=== PATIENT | female | born 1970 | race Caucasian/White ===

== ENCOUNTER 2019-11-27 07:55 | Outpatient (CLI) | payer OTHER, SELFPAY ==
[2019-11-27 08:07] VITALS: BMI 29.9
--- NOTE | 2019-11-27 08:21 | NMCV_ITS ---
Kevin Deandra Age: 49 Gender: F : 1970 Exam Date: 11/27/2019 08:50 Ordering Phys: Wilmer Maddox DO Technologist: LOUISE Pace Exam Location: [facility] Indications: Chest Pain STRESS TEST Please see separate stress test report in [facility] for full findings IMAGE PROTOCOL Rest/Stress 1 Lexiscan Day Radiopharmaceutical Dose (mCi) Administration Site Administered by Rest: Tc-99m 10.1 IV LOUISE Robison Sestamibi Stress:Tc-99m 27.9 IV LOUISE Pace Sestamibi Rest: 27-Nov-2019 60 Discovery 630 Stress: 27-Nov-2019 90 Discovery 630 0.4mg Lexiscan. Supine position only as patient began throwing up in the middle of the prone images. SPECT RESULTS Technical Quality: Good Raw Data Analysis: Normal, Breast attenuation Image Corrections: No attenuation or motion correction applied Summed Stress Score: 0 Summed Rest Score: 0 Summed Difference Score: 0 PERFUSION FINDINGS SPECT images demonstrate homogeneous tracer distribution throughout the myocardium. FUNCTIONAL RESULTS (calculated via Gated SPECT) Stress Image LV EF (%): 79 Stress EDV (mL):68 TID: 0.97 Stress ESV (mL):14 FUNCTIONAL FINDINGS: The left ventricle is normal in size. Transient Ischemia Dilatation of 0.97. There is normal left ventricular systolic function. The left ventricular ejection fraction is normal with a value of 79%. There is hyperdynamic left ventricular wall thickening. IMPRESSIONS 1. Myocardial perfusion imaging is normal. 2. Overall left ventricular systolic function is normal without regional wall motion abnormalities. 3. The left ventricular ejection fraction is normal with a value of 79%. 4. This study suggests a low likelihood of angiographically significant coronary artery disease. Trinidad Pelletier MD (Electronically Signed) Final Date: 27 November 2019 17:56 S
--- NOTE | 2019-11-27 08:21 | ECG_ITS ---
NAME OF STUDY: LEXISCAN SESTAMIBI STRESS TEST INDICATION: Chest Pain, Ischemic Heart Disease NOTE: Please note that this is the electrocardiogram portion of the Lexiscan/Sestamibi stress test. The perfusion scan will be documented separately. DATA: Baseline heart rate was 67 beats per minute. Baseline blood pressure was 145/82 millimeters of mercury. Target heart rate was 169. Maximum heart rate achieved was 106. which was 62 % of the predicted target heart rate. Maximum blood pressure was 145/83 millimeters of mercury. The reason for ending the test was completion of the protocol. The patient did not experience any symptoms. ELECTROCARDIOGRAM: BASELINE: Sinus rhythm. Normal axis. 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 No arrhythmia noted. EXERCISE: After Lexiscan injection, no ST-T changes suggestive of ischemic noted. No arrhythmia noted. CONCLUSION: Please note due to baseline abnormality of the EKG specificity and sensitivity of the EKG portion of LexiScan MIBI stress test will be low 1. EKG not suggestive of ischemia 2. Lexiscan injection unremarkable. 3. Perfusion scan will be documented separately. Electronically Signed On 11-27-2019 13:54:04 INSURANCE CLAIM AUDITOR by Yari Maciel M.D. [email or web address]
[2019-11-27] MEDS: regadenoson 0.4 Mg/5 ml Syringe IVP (09:50)
[2019-11-27 10:00] VITALS: BP 143/75; PULSE 73
== END 2019-11-27 07:56 | disposition home or self-care (01) ==
PROVIDERS: PCP Nurse Practitioner Family; Visit Provider Electrodiagnostic Medicine
DX: R07.9 Chest pain, unspecified (principal); Z82.49 Family history of ischemic heart disease and other diseases of the circulatory system
CPT/HCPCS: 78452; 93017; A9500; J2785

== ENCOUNTER 2020-08-29 13:51 | Outpatient (CLI) | payer OTHER, SELFPAY ==
--- NOTE | 2020-08-29 14:09 | XR_ITS ---
WS: [id number] Left shoulder, 08/29/2020 Clinical Data: SHOULDER PAIN, LEFT Comparison: None. Findings: No fractures or dislocations are seen. The AC joint is normal. The adjacent left clavicle, left scapu la and ribs are normal. The soft tissues are unremarkable. XR/XR shoulder LT min 2V* [id number] Impression: Negative left shoulder.
== END 2020-08-29 13:52 | disposition home or self-care (01) ==
LOC: RADWPI 13:54
PROVIDERS: PCP Nurse Practitioner Family; Visit Provider Nurse Practitioner Family
DX: M25.512 Pain in left shoulder (principal)
CPT/HCPCS: 73030

== ENCOUNTER 2020-09-22 16:20 | Outpatient (CLI) | payer OTHER, SELFPAY ==
--- NOTE | 2020-09-22 | MR_ITS ---
WS: [id number] MRI LEFT SHOULDER NONCONTRAST TECHNIQUE: Sagittal T2, coronal T1, T2 and proton density imaging. Axial gradient PDE imaging. CLINICAL INFORMATION: SHOULDER PAIN, LEFT COMPARISON: None. FINDINGS: Mild degenerative arthritis at the AC joint. Mild downsloping acromion. Slight subacromial spurring. Rotator cuff is intact. Normal supraspinatus and infraspinatus. Tiny subacromial effusion. Normal teres minor. Normal subscapularis. No rotator cuff tears. Normal biceps tendon in the bicipita l groove. Glenoid labrum is grossly normal. Intra-articular biceps tendon is normal in appearance. Sm all amount of fluid in the subcoracoid bursa. Normal bone marrow signal in the humerus. MR/MR shoulder LT wo con* [id number] IMPRESSION: 1. Mild degenerative arthritis at the AC joint with mild downsloping of the ac romion. Small amount of subacromial fluid. 2. Normal rotator cuff. No rotator cuff tears. 3. Normal biceps tendon in the bicipital groove. 4. Glenoid labrum appears grossly unremarkable.
== END 2020-09-22 16:21 | disposition home or self-care (01) ==
PROVIDERS: PCP Nurse Practitioner Family; Visit Provider Nurse Practitioner Family
DX: M19.012 Primary osteoarthritis, left shoulder (principal)
CPT/HCPCS: 73221

== ENCOUNTER → 2020-09-24 10:02 | Outpatient (BNVA) | payer OTHER, SELFPAY | PROVIDERS: PCP Nurse Practitioner Family; Visit Provider Specialist | DX: R20.0 Anesthesia of skin (principal); R20.2 Paresthesia of skin | CPT/HCPCS: 95908 ==

== ENCOUNTER 2020-11-11 16:15 | Outpatient (RCR) | payer OTHER, SELFPAY | END 2020-11-13 23:59 | disposition home or self-care (01) | LOC: SPT 16:15 | PROVIDERS: PCP Nurse Practitioner Family; Referring Provider Orthopaedic Surgery; Visit Provider Orthopaedic Surgery | DX: M75.02 Adhesive capsulitis of left shoulder (principal) | CPT/HCPCS: 97110; 97161 ==

== ENCOUNTER 2020-11-14 06:00 | Outpatient (RCR) | payer OTHER, SELFPAY | END 2020-12-14 23:59 | disposition home or self-care (01) | LOC: SPT 06:00 | PROVIDERS: PCP Nurse Practitioner Family; Referring Provider Orthopaedic Surgery; Visit Provider Orthopaedic Surgery | DX: M75.02 Adhesive capsulitis of left shoulder (principal) | CPT/HCPCS: 97110 ==

== ENCOUNTER → 2022-05-26 16:11 | Outpatient (BNVA) | payer OTHER, SELFPAY | PROVIDERS: PCP Nurse Practitioner Family; Visit Provider Nurse Practitioner Family | DX: E03.9 Hypothyroidism, unspecified (principal) | CPT/HCPCS: 84443 ==

== ENCOUNTER → 2022-08-12 14:08 | Outpatient (BNVA) | payer OTHER, SELFPAY | PROVIDERS: PCP Nurse Practitioner Family; Visit Provider Nurse Practitioner Family | DX: E03.9 Hypothyroidism, unspecified (principal) | CPT/HCPCS: 84443 ==

== ENCOUNTER → 2023-07-01 08:02 | Outpatient (BNVA) | payer OTHER, SELFPAY | PROVIDERS: PCP Clinical Nurse Specialist Adult Health; Visit Provider Clinical Nurse Specialist Adult Health | DX: E03.9 Hypothyroidism, unspecified (principal) | CPT/HCPCS: 84436; 84443; 84481 ==

== ENCOUNTER → 2023-08-23 08:58 | Outpatient (BNVA) | payer OTHER, SELFPAY | PROVIDERS: PCP Clinical Nurse Specialist Adult Health; Visit Provider Clinical Nurse Specialist Adult Health | DX: E03.9 Hypothyroidism, unspecified (principal) | CPT/HCPCS: 84436; 84443; 84481 ==

== ENCOUNTER → 2023-10-20 12:54 | Outpatient (BNVA) | payer OTHER, SELFPAY | PROVIDERS: PCP Clinical Nurse Specialist Adult Health; Visit Provider Clinical Nurse Specialist Adult Health | DX: M25.511 Pain in right shoulder (principal); G89.29 Other chronic pain | CPT/HCPCS: 85025; 85651; 86140; 86431 ==

== ENCOUNTER 2023-10-21 16:16 | Outpatient (CLI) | payer OTHER, SELFPAY ==
--- NOTE | 2023-10-21 16:32 | XRR_ITS ---
PROCEDURE INFORMATION: Exam: XR Right Shoulder Exam date and time: 10/21/2023 4:42 PM Age: 53 years old Clinical indication: Right; Patient HX: RT shoulder pain/stiffness with limited rom; PT states she has locked shoulder; Additional info: Right shoulder pain TECHNIQUE: Imaging protocol: Radiologic exam of the right shoulder. Views: 2 or more views. COMPARISON: CT angio chest PE protcl [id number] 11/09/2019 4:08 PM FINDINGS: Bones/joints: Normal. Soft tissues: Normal. XR/XR shoulder RT min 2V* [id number] IMPRESSION: No acute findings.
== END 2023-10-21 16:17 | disposition home or self-care (01) ==
LOC: RAD 16:18
PROVIDERS: PCP Clinical Nurse Specialist Adult Health; Visit Provider Clinical Nurse Specialist Adult Health
DX: M25.511 Pain in right shoulder (principal)
CPT/HCPCS: 73030

== ENCOUNTER 2023-11-24 15:31 | Outpatient (CLI) | payer OTHER, SELFPAY ==
--- NOTE | 2023-11-24 16:00 | MR_ITS ---
WS: [id number] MRI RIGHT SHOULDER HISTORY: right shoulder pain COMPARISON: Radiograph 10/21/2023 TECHNIQUE: Multiplanar sequences of the shoulder joint are submitted. Mild AC joint arthritis. Small osteophytes encroach upon the supraspinatus muscle and tendon. AC join t is narrowed and there is a small amount of fluid along the AC joint. There is a very small amount o f fluid in the subacromial bursa. No significant subacromial impingement. No os acromion. Normal posi tion of the biceps tendon. Central split tear in the bicipital groove. No rotator cuff muscle atrophy or edema. There is a very small, 3 mm articular surface tear involving the distal supraspinatus tendon. Tear involves less than 50% of the tendon and there is no retractio n. There is additional mild tendinopathy in the supraspinatus tendon. The remaining tendons are negat zach. Increased T2 signal in the superior labrum is more likely intrasubstance degeneration than a tea r. IMPRESSION: 1. Mild AC joint arthritis with encroachment upon the supraspinatus tendon and muscle. 2. Very small, 3 mm articular surface tear distal supraspinatus tendon. 3. Mild tendinopathy distal supraspinatus tendon. 4. Very small split tear in the biceps tendon at the bicipital groove.
== END 2023-11-24 15:32 | disposition home or self-care (01) ==
LOC: RAD 15:32
PROVIDERS: PCP Clinical Nurse Specialist Adult Health; Visit Provider Clinical Nurse Specialist Adult Health
DX: M19.011 Primary osteoarthritis, right shoulder (principal); G89.29 Other chronic pain; M75.101 Unspecified rotator cuff tear or rupture of right shoulder, not specified as traumatic; M67.813 Other specified disorders of tendon, right shoulder; S46.211A Strain of muscle, fascia and tendon of other parts of biceps, right arm, initial encounter; X58.XXXA Exposure to other specified factors, initial encounter
CPT/HCPCS: 73221

== ENCOUNTER → 2024-10-15 16:38 | Outpatient (BNVA) | payer OTHER, SELFPAY | PROVIDERS: PCP Clinical Nurse Specialist Adult Health; Visit Provider Nurse Practitioner Family | DX: N39.0 Urinary tract infection, site not specified (principal); R31.9 Hematuria, unspecified; M54.9 Dorsalgia, unspecified | CPT/HCPCS: 81000 ==